=== PATIENT | male | born 1950 | race Caucasian/White ===

== ENCOUNTER → 2022-05-14 | Outpatient (CLI) | payer MEDICARE ==
[~2022-05-14] MED LIST: CATAPRES 0.1MG0.1 MG PO; HYGROTON TAB 2525 MG PO; LOPRESSOR 25 MG25 MG PO; MICARDIS80 MG PO; NORVASC 5 MG TAB5 MG PO; ONCE DAILY1 EACH PO; PROTONIX40 MG PO; TRAMADOL HCL50 MG PO; ZYLOPRIM 300 M300 MG PO; [UNRECOGNIZED DRUG - OTHER] TD
== END ==
LOC: RAD 10:09
DX: M54.2 Cervicalgia (principal); M25.512 Pain in left shoulder; M54.50 Low back pain, unspecified; M47.816 Spondylosis without myelopathy or radiculopathy, lumbar region; M47.812 Spondylosis without myelopathy or radiculopathy, cervical region; M19.012 Primary osteoarthritis, left shoulder; M19.011 Primary osteoarthritis, right shoulder
CPT/HCPCS: 72040; 72100; 73030